=== PATIENT | male | born 1990 | race Caucasian/White ===

== ENCOUNTER 2020-05-14 23:04 | Emergency (ER) | payer OTHER, SELFPAY ==
[2020-05-15 00:06] VITALS: BP 140/86; PULSE 99; RESP 16; TEMP 37; O2SAT 99; BMI 27.3
--- NOTE | 2020-05-15 00:17 | ED_ITS ---
HPI - General Adult General Chief complaint: General Medical Stated complaint: seeking rehab Time Seen by Provider: 05/14/20 23:53 Source: patient Mode of arrival: ambulatory Limitations: no limitations History of Present Illness HPI narrative: 30 yo male with past medical history of acute anxiety, ADHD, Bipolar 1 disorder, PTSD (post-traumatic stress disorder) here seeking detox from heroin, cocaine and alcohol. Patient tells me he is currently on methadone but continuing to use polysubstances. Here seeking detox. denies SI/HI. Denies hallucinations. No physical complaints. Using 2 bundles of heroin a day (sn orting), cocaine daily unable to quantify and 1/5 of alcohol a day-last uses today. Related Data Allergies Allergy/AdvReac Type Severity Reaction Status Date / Time No Known Allergies Allergy Verified 05/15/20 00:17 [No Known Allergies*] Review of Systems Review of Systems: Yes all other systems are reviewed and are negative Constitutional: Constitutional: Reports no additional constitutional complaints, Denies body ache(s), Denies chills, Denies fever(s), Denies headache(s) and Denies weakness Eyes: Eyes: Reports no additional eye complaints and Denies change in vision ENT: Reports system reviewed and no additional complaints, except as documented, Denies dizziness, Denies headache(s), Denies nasal congestion, Denies nasal discharge and Denies neck pain Cardiovascular: Cardiovascular: Reports no additional cardiovascular complaints, Denies chest pain, Denies leg edema and Denies dyspnea Respiratory: Respiratory: Reports no additional respiratory complaints, Denies cough and Denies dyspnea Gastrointestinal: Gastrointestinal: Reports no additional gastrointestinal complaints, Denies abdominal pain, Denies diarrhea, Denies nausea and Denies vomiting Genitourinary: Genitourinary: Denies urinary incontinence Musculoskeletal: Musculoskeletal: Reports no additional musculoskeletal complaints, Denies back pain, Denies arthralgias, Denies joint swelling, Denies neck pain, Denies numbness and Denies tingling Integumentary/Breasts: Skin/Breast: Reports system reviewed and no additional complaints, except as docu and Denies rash Neurologic: Reports system reviewed and no additional complaints, except as documented, Denies Abnormal speech present, Denies dizziness, Denies headache(s), Denies numbness, Denies tingling and Denies weakness [facility] Past Medical History Attestation statement: The following information was validated with the patient. Source: old records reviewed and nursing notes reviewed Medical History Acute anxiety ADHD Bipolar 1 disorder PTSD (post-traumatic stress disorder) Social History Social History Smoking Status: Current every day smoker Substance Use Type: Crack/Cocaine, Heroin, Marijuana and Opiates Substance Use Frequency: Chronic Longstanding Any prior treatment program specific to substance use: Yes Advance Directives: No Physical Exam Vital Signs: Vital Signs: Last Vital Signs Temp 98.6 F 05/15/20 00:06 Pulse 99 05/15/20 00:06 Resp 16 05/15/20 00:06 BP 140/86 H 05/15/20 00:06 Pulse Ox 99 05/15/20 00:06 Body Mass Index 27.3 Const: General: cooperative, healthy appearing, comfortable and no acute distress Orientation/consciousness: patient oriented x3 Limitations: no limitations HENMT: Head: Yes normal to inspection Ears: hearing grossly normal bilaterally General nose exam: Normal external nose present Face and sinus: Yes normal facial exam Mouth: Normal oral and palatal mucosa present Throat: Yes posterior oropharynx normal Eyes: General: appearance normal, both eyes and all related structures Pupils: Equal, round and reactive pupils present Neck: Neck: Yes normal visual inspection Chest: Chest palpation & inspection: normal inspection of the chest Resp: Effort & Inspection: normal respiratory effort Auscultation: clear to auscultation bilaterally Cardio: Rate: regular rate Rhythm: regular rhythm Peripheral pulses: Peripheral pulses 2+ throughout GI: Inspection: Yes normal to inspection Palpation (GI): Soft to palpation and nontender Auscultation: normal bowel sounds Back/Spine/Pelvis: Thoracic/Lumbar Spine: thoracic and lumbar spine normal to inspection Skin: General skin exam: no rashes or lesions noted Neuro: General: patient oriented x3, no focal motor deficits and normal sensation to monofilament Cranial nerves: Yes Equal, round and reactive pupils present Cognition (Neuro): normal cognition Speech: No Abnormal speech present Gait exam (Neuro): Normal gait present Motor exam (neuro): 5/5 motor strength present throughout Extrem: General: Yes normal to inspection Course Course Course Narrative: 30 yo male seeking detox for polysubstances. No SI/HI. No physical complaints. Has tried calling for detox bed but no availability. Will consult care team. 0100-Patient eloped from the ED prior to being seen by care team. Discharge Plan Discharge Clinical Impression: Polysubstance (including opioids) dependence, daily use Patient Disposition: Elopement Interventions: ED Discharge Assessment Last Done: 05/15/20 00:56 Discharge Date/Time: 05/15/20 01:01
--- NOTE | 2020-05-15 00:23 | PC.NURSE ---
PT WAS WALKING INTO PT ROOM REQUESTING PHONE CHARGERS.
--- NOTE | 2020-05-15 00:30 | PC.NURSE ---
pt began to argue with nurse about going into pt room and asking for phone chargers. pt was told to go back to his seat and wait and the charge nurse would come talk to him security aware.
--- NOTE | 2020-05-15 00:43 | PC.NURSE ---
PT REQUESTED TO USE PHONE PHONE PROVIDED TO PT AFTER USING PHONE HE SCREAMED AT NURSE HE WAS LEAVING THREW PHONE ON CHAIR. PT IN WAITING ROOM NOW HARASSING PEOPLE IN WAITING ROOM SECURITY CALLED AND CHARGE NURSE AWARE.
== END 2020-05-15 01:01 | disposition left against medical advice (07) ==
PROVIDERS: Emergency Provider Emergency Medicine; PCP Internal Medicine
DX: F11.20 Opioid dependence, uncomplicated (principal); F19.20 Other psychoactive substance dependence, uncomplicated; F90.9 Attention-deficit hyperactivity disorder, unspecified type; F31.9 Bipolar disorder, unspecified; F43.10 Post-traumatic stress disorder, unspecified
CPT/HCPCS: 99283